=== PATIENT | female | born 1980 | race Caucasian/White ===

== ENCOUNTER 2022-08-28 09:33 | Outpatient (CLI) | payer OTHER, SELFPAY | END 2022-08-28 09:34 | disposition home or self-care (01) | LOC: NFLDREF 08-29 22:08 | PROVIDERS: PCP Family Medicine; Referring Provider Family Medicine; Visit Provider Family Medicine | DX: E78.5 Hyperlipidemia, unspecified (principal); E66.01 Morbid (severe) obesity due to excess calories | CPT/HCPCS: 80053; 80061 ==

== ENCOUNTER 2023-05-08 11:58 | Outpatient (CLI) | payer OTHER, SELFPAY ==
--- NOTE | 2023-05-08 12:15 | CRLHL7_ITS ---
For Patients: As a result of the Century Cures Act, medical imaging exams and procedure reports are released immediately into your electronic medical record. You may view this report before your referring provider. If you have questions, please contact your health care provider. INDICATION: Abnormal uterine bleeding COMPARISON: none TECHNIQUE: 2D pichardo scale and color Doppler images were acquired of the pelvis using a transabdominal and transvaginal approach. FINDINGS: Sonographic images demonstrate a normal size and smooth outer contour of the uterus. Uterus measures 8.8 cm in length by 5.0 cm in AP diameter by 4.9 cm in transverse dimension. section scar noted along with cervical nabothian cysts. No uterine fibroid. The endometrial lining appears heterogeneous and measures 13 mm in composite thickness. Intrauterine device is present within the endometrial canal. The right ovary measures 2.7 x 1.9 x 1.9 cm in size and the left ovary measures 2.7 x 1.7 x 1.7 cm. The ovaries demonstrate normal arterial and venous blood flow on color Doppler analysis. There are no suspicious fluid collections within the cul-de-sac. IMPRESSION: Normal position of the IUD within the endometrial canal. Heterogeneous endometrium measuring 13 millimeters. Dictated by Joe Cheung MD @ 05/08/2023 1:07:33 PM (Electronically Signed)
== END 2023-05-08 11:59 | disposition home or self-care (01) ==
LOC: US 11:59
PROVIDERS: PCP Family Medicine; Visit Provider Obstetrics & Gynecology
DX: N93.9 Abnormal uterine and vaginal bleeding, unspecified (principal); R93.89 Abnormal findings on diagnostic imaging of other specified body structures
CPT/HCPCS: 76830; 76856

== ENCOUNTER 2023-07-25 14:03 | Outpatient (CLI) | payer BC, SELFPAY ==
--- NOTE | 2023-07-25 14:00 | MM_ITS ---
Patient: RICARDO LYNN Facility:?[facility] Patient ID:?[id number] Site Patient ID:?[id number]. Site :?1980 Study:?XRay-Breast Bilateral 3D W/CAD-07/25/2023 3:30:49 PM Ordering Physician:Kamran Stevenson Final Report: BILATERAL DIGITAL SCREENING MAMMOGRAM WITH TOMOSYNTHESIS AND COMPUTER-AIDED DETECTION CLINICAL HISTORY: Routine screening exam. COMPARISON: None. TECHNIQUE: Digital mammogram in CC and MLO projections including computer-aided detection (CAD). Tomosynthesis utilized. BREAST COMPOSITION: The breasts are almost entirely fatty. FINDINGS: RIGHT Breast: Lobular density with calcification measuring 15 millimeters located in the lower inner quadrant 9 cm from the nipple. LEFT Breast: No suspicious findings. IMPRESSION: RIGHT breast asymmetry/mass. RECOMMENDATIONS: Additional mammographic views of the RIGHT breast including 3D spot compression CC/MLO. RIGHT breast ultrasound may also be required. BI-RADS Category 0: Incomplete: Need Additional Imaging Evaluation and/or Prior Mammograms for Comparison The [facility] will contact the patient for follow-up. A lay language report of this examination will be provided to the patient. Dictated by Joe Cheung MD @ 07/26/2023 10:14:58 AM j/Dictated by: Joe Cheung MD @ 07/26/2023 10:21:00 AM Signed by:?Joe Cheung MD @07/26/2023 10:23:18 AM (Electronic Signature)
== END 2023-07-25 14:04 | disposition home or self-care (01) ==
PROVIDERS: PCP Family Medicine; Visit Provider Family Medicine
DX: Z12.31 Encounter for screening mammogram for malignant neoplasm of breast (principal); N63.10 Unspecified lump in the right breast, unspecified quadrant
CPT/HCPCS: 77063; 77067

== ENCOUNTER 2023-08-16 09:46 | Outpatient (CLI) | payer BC, SELFPAY ==
--- NOTE | 2023-08-16 09:45 | MM_ITS ---
Patient: RICARDO LYNN Facility:?[facility] Patient ID:?[id number] Site Patient ID:?[id number]. Site :?1980 Study:?XRay-Breast Right 3D W/CAD-08/16/2023 10:24:01 AM Ordering Physician:Elva Final Report: DIGITAL DIAGNOSTIC RIGHT MAMMOGRAM USING TOMOSYNTHESIS AND COMPUTER-AIDED DETECTION RIGHT BREAST ULTRASOUND CLINICAL HISTORY: RIGHT breast mass/asymmetry. COMPARISON: 07/25/2023. TECHNIQUE: Digital RIGHT mammogram in two projections. Tomosynthesis and CAD utilized. Real-time ultrasound imaging of RIGHT breast with imaging documentation. BREAST COMPOSITION: There are areas of scattered fibroglandular density. FINDINGS: 3D spot compression CC/MLO RIGHT breast mammogram images submitted. Persistent nodular density is present with coarse calcifications. No architectural distortion. Targeted RIGHT breast ultrasound performed. At 1 o`clock 7 cm from the nipple, there is a lobular hypoechoic mass, taller than wide, measuring 14 x 17 x 13 millimeters. IMPRESSION: Suspicious 1.7 cm nodule RIGHT breast 1 o`clock 7 cm from the nipple. RECOMMENDATIONS: Ultrasound-guided core needle biopsy. Results and recommendations discussed with the patient. BI-RADS Category 4: Suspicious A lay language report of this examination will be provided to the patient. Dictated by Joe Cheung MD @ 08/16/2023 11:20:15 AM jj/Dictated by: Joe Cheung MD @ 08/16/2023 11:20:00 AM Signed by:?Joe Cheung MD @08/16/2023 12:15:11 PM (Electronic Signature)
--- NOTE | 2023-08-16 10:15 | US_ITS ---
Patient: RICARDO LYNN Facility:?[facility] Patient ID:?[id number] Site Patient ID:?[id number] Site :?1980 Study:?US-Breast Right DR YU TO READ-08/16/2023 10:47:00 AM Ordering Physician:?AZEB SEAMAN Final Report: PLEASE SEE DIGITAL DIAGNOSTIC RIGHT MAMMOGRAM PERFORMED SAME DAY CRL:chava larsen/Dictated by: Joe Yu MD @ 08/16/2023 11:20:00 AM Signed by:?Joe Yu MD @08/16/2023 12:15:12 PM (Electronic Signature)
== END 2023-08-16 09:47 | disposition home or self-care (01) ==
LOC: MAMMO 09:46
PROVIDERS: PCP Family Medicine; Visit Provider Family Medicine
DX: N63.10 Unspecified lump in the right breast, unspecified quadrant (principal); R92.8 Other abnormal and inconclusive findings on diagnostic imaging of breast
CPT/HCPCS: 76642; 77065; G0279

== ENCOUNTER 2023-08-27 09:11 | Outpatient (CLI) | payer BC, SELFPAY ==
--- OUTSIDE RECORDS SUMMARY | 2023-08-27 09:13 | XMS_ITS | Clinical Summary ---
Author Name Unknown Organization [facility] Address [place], [place] [address] Care Team Providers Care Peeled Potato Inspector Name Role Phone Pcp, No Primary Care Provider Unavailabl e Allergies No known active allergies Medications Medication Sig Dispensed Refills Start Date End Date Status betamethasone, augmented dipropianate 0.05% (DIPROLENE AF) 0.05 % creamIndications:Ecz abbey, dyshidrotic Apply topically to affected area(s) 2 times daily. Apply to hand until resolved, not > 2 weeks 50 g 05/29/2017 Active FLUoxetine (PROZAC) 40 mg capsuleIndications:A nxiety,Obsessive-com pulsive disorder, unspecified type Take 1 capsule by mouth every morning. 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 Generalized anxiety disorder 10/08/2009 Adjustment disorder with mixed anxiety and depre ssed mood 09/15/2009 Tobacco use disorder 09/15/2009 EDEMA, CORNEAL DUE TO CONTACT LENS 07/08/2003 DEPRESSION, NEUROTIC 08/05/1999 ANXIETY OBSESSIVE-COMPULSIVE DISORDERS INFERTILITY - FEMALE Immunizations Name Administration Dates Next Due Influenza, IIV4 04/10/2016 Social History Tobacco Use Types Packs/Day Years Used Date Smoking Tobacco: Every Day Cigarettes Smokeless Tobacco: Never Tobacco Cessation:Counseling Given: Yes Alcohol Use Standard Drinks/Week Comments No 0 (1 standard drink = 0.6 oz pur e alcohol) Alcoholic Drinks/day: 0 Sex and Gender Information Value Date Recorded Sex Assigned at Not on file Gender Identity Not on file Sexual Orientation Not on file Obstetrics History Last Filed Vital Signs Vital Sign Reading Time Taken Comments Blood Pressure 120/82 06/23/2017 12:20 PM CHILLING HOOD OPERATOR Pulse 92 06/23/2017 12:20 PM CHILLING HOOD OPERATOR Temperature 37.2 ??C (98.9 ??F) 06/23/2017 1 2:20 PM CHILLING HOOD OPERATOR Respiratory Rate 18 01/11/2013 4:00 AM CDT Oxygen Saturation 98% 06/23/2017 12: 20 PM CHILLING HOOD OPERATOR Inhaled Oxygen Concentration - - Weight 115.6 kg (254 lb 12.8 oz) 2017 12:20 PM CHILLING HOOD OPERATOR Height 165.7 cm (5' 5.25) 05/29/2017 1 0:05 AM CHILLING HOOD OPERATOR Body Mass Index 42.08 05/29/2017 10:05 AM CHILLING HOOD OPERATOR Plan of Treatment Health Maintenance Due Date Last Done Comments HIV for age 15-65 1993 Hepatitis C screening for age 18-79 1996 Tetanus booster 1998 Depression screening for age 12+ 11/24/2017 11/24/2016 BMI (ht and wt on same day) for age 18+ 05/29/2018 05/29/2017, 04/18/2017, 11/24/2016, Additional history exists COVID-19 vaccine series (2022- season) 2023 Colonoscopy through age 75 2023 Lipids for age 45-75 2023 Mammogram for age 45-75 2023 Pap test for age 21-65 12/03/2023 12/02/2020, 2020 Influenza for age 9-49 01/13/2024 04/10/2016 Tdap Completed 01/04/2013 (Comp leted outside of [facility]) Pneumococcal series for age 6-64 Aged Out No longer eligible based on patient's age to complete this topic Procedures Procedure Name Priority Date/Time Associated Diagnosis Comments DEDENTER THIN PREP PAP SCREEN IMAGED Routine 12/02/2020 10:00 AM CDT from Last 3 Months or Most Recently Relevant to Health Maintenance Results * (ABNORMAL) DEDENTER THIN PREP PAP SCREEN IMAGED (12/02/2020 10:00 AM CDT) Case Report Gynecologic Cytology Report ? Case: [id number] ? Authorizing Provider: ??Kamran Barajas MD ?Collected: ? 12/02/2020 1000 ? Ordering Location: ? [facility] ?Received: ?12/03/2020 0755 ? First Screen: ?Simona Valladares ? Pathologist: ? Mane Weiss Jr., ? MD ? Specimen: ?DEDENTER ThinPrep Vial Screening, Cervical/Vagina l ? 12/14/2020 10:39 AM CDT [facility] INTERPRETATION/ RESULT ATYPICAL SQUAMOUS CELLS OF UNDETERMINED SIGNIFICANCE (ASCUS)(A) (none) 12/14/2020 10:39 AM CDT [facility] IMEN ADEQUACY Satisfactory for evaluation Endocervical component present 12/14/2020 10:39 AM CDT [facility] HPV REQUEST HPV and PAP 12/14/2020 10:39 AM CDT [facility] Additional Information 12/14/2020 10:39 AM CDT [facility] Comment: Interpreted at [facility] - [address], [place] [address] Automated Review Successful 12/14/2020 10:39 AM T [facility] Comment:Specimen processed s uccessfully by automated admitting office escort device, ThinPrep Imaging System, [employer] ANCILLARY TESTING DEDENTER HPV Ordered, Please see separate report 12/14/2020 10:39 AM T [facility] Note The pap test is a screening technique, not a diagnostic procedure. It is used primarily to screen for squamous cancers and precursor lesions. Published studies have shown that it is subject to both false negative and false positive results. The pap test should not be used as the sole means to diagnose or exclude pre-malignant and malignant lesions. 12/14/2020 10:39 AM T [facility] Other (Cervical/Vagina l) 12/02/2020 10:00 AM CDT 12/03/2020 7:55 AM CDT Kamran Barajas MD PATHOLOGY/CYTOLOGY [facility] [address] [place] [address], [place] from Last 3 Months or Most Recently Relevant to Health Maintenance Advance Directives * Full Code (Latest Code Status on File) Date Activated Date Inactivated Comments 04/17/2008 7:25 AM 04/17/2008 2:57 PM Care Teams Peeled Potato Inspector Relationship Specialty Start Date End Date Pcp, No . PCP - General 01/10/13
--- NOTE | 2023-08-27 09:15 | US_ITS ---
Patient: RICARDO LYNN Facility:?[facility] Patient ID:?[id number] Site Patient ID:?[id number]. Site :?1980 Study:?US-Breast Right DR YU TO READ-08/27/2023 9:54:09 AM Ordering Physician:?AZEB SEAMAN Final Report: ULTRASOUND-GUIDED RIGHT BREAST BIOPSY AND POST-BIOPSY DIGITAL MAMMOGRAM FOR BIOPSY MARKER PLACEMENT CLINICAL HISTORY: Indeterminate nodule. COMPARISON STUDIES: 08/16/2023, 07/25/2023. TECHNIQUE: Real-time ultrasound with image documentation was used for targeting the breast lesion. Core biopsy specimens were obtained using an automated gun with a 18- gauge biopsy needle. Post-biopsy CC and ML digital mammograms were obtained to document position of the biopsy marker. CONSENT and TIME OUT: The procedure, risks, and alternatives were explained to the patient and a consent was signed. [place] Protocol was followed including pre-procedure verification that relevant information/documentation was available, reviewed and properly matched to the patient; consent accurate and complete; and equipment and supplies available. Time Out was conducted just prior to starting procedure to verify the four required elements: patient identity, correct side/site marked (if applicable), procedure, relevant images/results properly labeled and displayed (if applicable). PROCEDURE: The patient was positioned supine on the ultrasound table. The breast was prepped with ChloraPrep. 8 cc of 1 percent lidocaine used for local anesthesia. Core samples were obtained. A sterile metal biopsy clip was placed percutaneously to katiana the lesion position within the breast. The specimens were placed in 10% formalin and sent to the pathology department. Pressure was held on the biopsy site until all bleeding subsided. The skin incision was closed with Steri-Strips. An ice pack was positioned over the biopsy site. Post-biopsy instructions were reviewed with the patient, and a written copy was given to her. LATERALITY: RIGHT. LESION: Hypoechoic solid lesion measuring 1.4 x 1.7 x 1.3 cm at 1 o`clock 7 cm from the nipple. SUSPICION FOR MALIGNANCY: High. NUMBER OF SAMPLES: 6 BIOPSY CLIP SHAPE: Oval. PROXIMITY OF CLIP TO TARGET: Immediately adjacent to/within the lesion. IMPRESSION: Ultrasound-guided breast biopsy. When the pathology report is available, an addendum to this report will be made. 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 This is concordant. Because the patient has a history of chest radiation for lymphoma treatment, would consider high risk screening for this patient. Dictated by: Joe Yu MD @08/29/2023 10:02:09 AM / Alex Signed by:?Joe Yu MD @08/29/2023 11:18:31 AM (Electronic Signature)
--- NOTE | 2023-08-27 10:00 | MM_ITS ---
Patient: RICARDO LYNN Facility:?[facility] Patient ID:?[id number] Site Patient ID:?[id number]. Site :?1980 Study:?XRay-Breast Right 2D w/ CAD POST CLIP PLACEMENT-08/27/2023 9:54:32 AM Ordering Physician:Elva Final Report: PLEASE SEE RIGHT ULTRASOUND-GUIDED BIOPSY OF SAME DAY. CRL:pjt PT/Dictated by: Joe Cheung MD @ 08/27/2023 10:25:00 AM Signed by:?Joe Cheung MD @08/27/2023 10:36:37 AM (Electronic Signature)
== END 2023-08-27 09:12 | disposition home or self-care (01) ==
LOC: US 09:11
PROVIDERS: PCP Family Medicine; Visit Provider Family Medicine
DX: N63.10 Unspecified lump in the right breast, unspecified quadrant (principal); D24.1 Benign neoplasm of right breast; R92.8 Other abnormal and inconclusive findings on diagnostic imaging of breast
CPT/HCPCS: 19083; 77065; 88305; A4648; A4649

== ENCOUNTER 2024-01-04 11:20 | Outpatient (CLI) | payer BC, SELFPAY ==
--- OUTSIDE RECORDS SUMMARY | 2024-01-04 11:23 | XMS_ITS | Clinical Summary ---
Author Organization [facility] Address [place], [place] [address] Care Team Providers Care Retail Advisor Name Role Phone Pcp, No Primary Care [...] Comments Blood Pressure 120/82 06/23/2017 12:20 PM MOLDING MACHINE SETTER Pulse 92 06/23/2017 12:20 PM MOLDING MACHINE SETTER Temperature 37.2 ??C (98.9 ??F) 06/23/2017 1 2:20 PM MOLDING MACHINE SETTER Respiratory Rate 18 01/11/2013 4:00 AM CDT Oxygen Saturation 98% 06/23/2017 12: 20 PM MOLDING MACHINE SETTER Inhaled Oxygen Concentration - - Weight 115.6 kg (254 lb 12.8 oz) 2017 12:20 PM MOLDING MACHINE SETTER Height 165.7 cm (5' 5.25) 05/29/2017 1 0:05 AM MOLDING MACHINE SETTER Body Mass Index 42.08 05/29/2017 10:05 AM MOLDING MACHINE SETTER Plan of Treatment Health Maintenance Due Date [...] Procedure Name Priority Date/Time Associated Diagnosis Comments CREATIVE ART THERAPIST THIN PREP PAP SCREEN IMAGED Routine 12/02/2020 10:00 AM CDT from Last 3 Months or Most Recently Relevant to Health Maintenance Results * (ABNORMAL) CREATIVE ART THERAPIST THIN PREP PAP SCREEN IMAGED (12/02/2020 10:00 AM CDT) Case Report Gynecologic Cytology Report ? Case: [id number] ? Authorizing Provider: ??Kamran Barajas MD ?Collected: ? 12/02/2020 1000 ? Ordering Location: ? [facility] ?Received: ?12/03/2020 0755 ? First Screen: ?Simona Valladares ? Pathologist: ? Mane Weiss Jr., ? MD ? Specimen: ?CREATIVE ART THERAPIST ThinPrep Vial Screening, Cervical/Vagina l ? 12/14/2020 10:39 AM CDT [facility] INTERPRETATION/ RESULT ATYPICAL SQUAMOUS CELLS OF UNDETERMINED SIGNIFICANCE (ASCUS)(A) (none) 12/14/2020 10:39 AM CDT [facility] IMEN ADEQUACY Satisfactory for evaluation Endocervical component present 12/14/2020 10:39 AM CDT [facility] HPV REQUEST HPV and PAP 12/14/2020 10:39 AM CDT [facility] Additional Information 12/14/2020 10:39 AM CDT [facility] Comment: Interpreted at [facility] - [address], [place] [address] Automated Review Successful 12/14/2020 10:39 AM T [facility] Comment:Specimen processed s uccessfully by automated horse show judge device, ThinPrep Imaging System, [employer] ANCILLARY TESTING CREATIVE ART THERAPIST HPV Ordered, Please see separate report 12/14/2020 10:39 AM CDT [facility] Note The pap test is a screening technique, not a diagnostic procedure. It is used primarily to screen for squamous cancers and precursor lesions. Published studies have shown that it is subject to both false negative and false positive results. The pap test should not be used as the sole means to diagnose or exclude pre-malignant and malignant lesions. 12/14/2020 10:39 AM T [facility] Other (Cervical/Vagina l) 12/02/2020 10:00 AM CDT 12/03/2020 7:55 AM CDT Kamran Barajas MD PATHOLOGY/CYTOLOGY [facility] [address] [place] [address], [place] from Last 3 Months or Most Recently Relevant to Health Maintenance Advance Directives * Full Code (Latest Code Status on File) Date Activated Date Inactivated Comments 04/17/2008 7:25 AM 04/17/2008 2:57 PM Care Teams Retail Advisor Relationship Specialty Start Date End Date Pcp, No . PCP - General 01/10/13
== END 2024-01-04 11:21 | disposition home or self-care (01) ==
LOC: NFLDREF 11:21
PROVIDERS: PCP Family Medicine; Visit Provider Registered Nurse
DX: R51.9 Headache, unspecified (principal); G89.29 Other chronic pain
CPT/HCPCS: 84439; 84443

== ENCOUNTER 2024-06-13 09:13 | Outpatient (CLI) | payer BC, SELFPAY | END 2024-06-13 09:14 | disposition home or self-care (01) | PROVIDERS: PCP Family Medicine; Visit Provider Registered Nurse | DX: R53.83 Other fatigue (principal); E66.01 Morbid (severe) obesity due to excess calories; R06.01 Orthopnea | CPT/HCPCS: 80048; 83880; 84439; 84443 ==

== ENCOUNTER 2024-11-21 00:13 | Emergency (ER) | payer BC, SELFPAY ==
--- OUTSIDE RECORDS SUMMARY | 2024-11-21 00:15 | XMS_ITS | Data Portability ---
Author Organization [facility], [employer] Address [address] [place] [address] Assessment Encounter Date Assessment Date Assessment LastModified by Organization Details LastModified Time 10/02/2024 10/02/2024 Informed the patient of her diagnosis as detailed down below. At this time she was informed that we will first attempt a tri layered heel lift in addition to PT for initial relief. In regards to her heel lift she will leave [address] for 2 weeks, followed by removal of 1 layer, leaving [address] followed by removal of the last layer. Additionally I will send the patient to [facility] for treatment. The patient was informed about surgical correction, however she was detailed that this would only be pursed after failure of conservative cares in addition to after smoking cessation which she was understanding. The patient will be seen back in about 3 weeks for a recheck. [email or web address] Not available 10/02/2024 15:41:04 Plan of Treatment Reminders Order Date Submit Date Provider Last Modified By Organization Details Last Modified Time Details Appointments None record ed. Lab None record ed. Referral None record ed. Procedures None record ed. Surgeries None record ed. Imaging XR, foot, 3 or more view 025 10/03/[address] [facility], [address] [place] [address], [id number], 17:19:01 Medication Orders None record ed. Patient TargetsNo targets recorded. Patient InstructionsNo instructions recorded. Reason for Referral None Reported. Results Created Date Observation Date Name Description Value Unit Range Abnormal Flag Note LastModifiedBy Organization Detail LastModifiedTime 10/03/19 XR, foot, 3 or more view No observ ation record ed. [email or web address] [facility] [address] [place] [address] [address], [place], [address], 10/02/2024 15:38:41 Result Notes None recorded. Medical Equipment None Reported. Allergies No known drug allergies Medications Name Sig Start Date Stop Date Status Note LastModified by Organization Details LastModified Time cetirizine 10 mg tablet TAKE 1 TABLET BY MOUTH EVERY DAY active Not Available Not Available No t Available hydrocortison e 1 % topical ointment APPLY TOPICALLY TO THE AFFECTED AREA 1 TIME A DAY FOR 2 WEEKS active Not Available Not Available No t Available triamcinolone acetonide 0.1 % topical cream APPLY TOPICALLY TO THE AFFECTED AREA EVERY DAY NEEDED FOR RASH active Not Available Not Available No t Available fluoxetine 20 mg capsule TAKE 2 CAPSULES BY MOUTH DAILY active Not Available Not Available No t Available Vitals Date Recorded Body height Body mass index (BMI) Body weight Provider Name and Address Organization Details Last Updated DateTime 10/02/2024 167.64 cm 38.7 kg/m2 902248.17 g Elizabeth [facility] 10/02/2024 14:52:35 Social History None recorded. Functional Status None recorded. Mental Status None recorded. Family History Nothing Reported. Medical History No medical history recorded. Gynecological HistoryNo gynecological history recorded. 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 Health Concerns Section Related Observation LastModified by Organization Detai ls LastModified Time None Recorded Concern Status LastModified by Organization Details LastModified Time None Recorded Advance Directives Directive None Recorded Payers Insurance Date Sequence Insurance Name Policy Number Policy Borrero Covered Member ID Borrero Member ID Guarantor Name 10/02/2024 1 [place] [id number] Ashley [id number] Ashley Alonzo Notes Date Note Type Note Provider Name and Address Organization Details Recorded Time 10/02/2024 text/html Patient is a 44 year old female new patient who presents to clinic today for evaluation of right sided foot pain. Mentions that this has been ongoing for about 1 year in duration and presents today after gradually worsening symptoms. Mentions that she has not tried any conservative cares at this time. Chung Garces DPM [address] [place], [address], [facility] - [facility] 10/02/2024 15:41:17 OBGyn Episode No OBEpisode recorded.
[2024-11-21 00:19] VITALS: BP 134/55; PULSE 68; RESP 16; TEMP 36.1; O2SAT 98
[2024-11-21 00:32] LABS: Appearance Urine Cloudy (Clear)
--- NOTE | 2024-11-21 00:44 | CRLHL7_ITS ---
For Patients: As a result of the Century Cures Act, medical imaging exams and procedure reports are released immediately into your electronic medical record. You may view this report before your referring provider. If you have questions, please contact your health care provider. Indication: Abdominal pain Technique: CT through the abdomen and pelvis following 127 mL Isovue 370 IV contrast Comparison: None Findings: Lower chest: No acute abnormality appreciated. Hepatobiliary: No significant parenchymal abnormality is appreciated. Spleen: Unremarkable. Pancreas: No acute abnormality appreciated. Adrenal glands: No acute abnormality appreciated. Kidneys: Mild right hydronephrosis with a delayed right nephrogram. Nonobstructing bilateral stones. Bowel: No obstruction. No focal perienteric or pericolonic stranding is appreciated. The appendix is visualized and appears unremarkable. Vascular: No acute abnormality appreciated. Lymph nodes: No gross lymphadenopathy. Peritoneum: No free air. No free fluid. : IUD present. Obstructing 3 millimeter distal right ureteral stone. Soft tissues: No acute abnormality appreciated. Bones: No acute fracture. No lytic or blastic lesion. Mild spondylosis and spondylolisthesis. Impression: 1. Obstructing 3 millimeter distal right ureteral stone with mild hydronephrosis and a delayed right nephrogram. 2. Additional bilateral nonobstructing stones present. Please note that all CT scans at this facility use dose modulation, iterative reconstruction, and/or weight-based dosing when appropriate to reduce radiation dose to as low as reasonably achievable. Dictated by Jesus Kerns MD @ 11/21/2024 1:41:10 AM (Electronically Signed)
--- NOTE | 2024-11-21 00:45 | ED_ITS ---
HPI - Abdominal Pain General Chief Complaint: Abdominal Pain Stated Complaint: low right abd. pain Time Seen by Provider: 11/21/24 01:49 History of Present Illness HPI narrative: Patient is a 44-year-old woman with history of kidney stones who presents with right flank pain 1 hour duration. She has had nausea but no vomiting. Pain is severe 8/10 with no radiation pain is sharp. She has had similar symptoms with kidney stones in the past. She states she is not and has a Mirena IUD in place. No other symptoms. Related Data Home Medications ?Medication ?Instructions ?Recorded ?Confirmed levonorgestrel (Mirena) 1 device intrauterine ONCE 1 06/21/22 07/02/24 Previous Rx's ?Medication ?Instructions ?Recorded fluoxetine 20 mg capsule 40 mg (2 x 20 mg) PO QDAY 90 days 01/30/24 #180 caps triamcinolone acetonide 0.1 % 1 applic topical QDAY RI N rash #30 06/13/24 topical cream grams cetirizine 10 mg tablet (Zyrtec) 10 mg PO QDAY #30 tab s 07/02/24 hydrocortisone 1 % topical ointment 1 applic topical O NCE #28.35 grams 07/02/24 sumatriptan succinate 50 mg tablet See Rx Instructions PO .COMPLEX 10/27/24 #20 tabs tamsulosin 0.4 mg capsule (Flomax) 0.4 mg PO DAILY #7 caps 11/21/24 Allergies Allergy/AdvReac Type Severity Reaction Status Date / Time No Known Allergies Allergy Unknown Verified 07/02/24 13:47 Review of Systems Status of ROS Reports: 10 or more systems reviewed and unremarkable except as noted in History and below [facility] Medical History Hx of echocardiogram ?Z92.89 - Personal history of other medical treatment (ICD-10) Congestive heart failure ?I50.9 - Heart failure, unspecified (ICD-10) History of induced hypertension ?Z87.59 - Personal history of other complications of , childbirth and the puerperium (ICD-10) Abnormal uterine bleeding (AUB) ?N93.9 - Abnormal uterine and vaginal bleeding, unspecified (ICD-10) Otitis media ?H66.90 - Otitis media, unspecified, unspecified ear (ICD-10) History of spontaneous ?Z87.59 - Personal history of other complications of , childbirth and the puerperium (ICD-10) History of renal calculi ?Z87.442 - Personal history of urinary calculi (ICD-10) History of Hodgkin's lymphoma ?Z85.71 - Personal history of Hodgkin lymphoma (ICD-10) Bleeding ?R58 - Hemorrhage, not elsewhere classified (ICD-10) Surgical History History of section ?Z98.891 - History of uterine scar from previous surgery (ICD-10) Family History Father Heart valve replaced Rheumatic heart disease Mother Endometriosis Sister Endometriosis Social History Smoking Status: Current every day smoker Non-prescribed substance use: denies use Exam Narrative: Exam Narrative: EXAM GENERAL: Patient appears mildly uncomfortable. EYES: No scleral icterus. LYMPH: No supraclavicular or cervical lymphadenopathy. SKIN: Visible skin seen during exam normal or with benign process only. EXT: No dependent lower extremity pedal edema. HEART: Regular rate and rhythm with no murmurs, rubs, or gallops. LUNGS: Clear to auscultation bilaterally with no crackles or wheezes. ABD: Soft, non tender, non distended. PSYCH: Good eye contact, speech is not pressured. Const: Vital Signs, click to edit/add: Vital Signs - 24 hr 11/21/24 00:19 Temperature 97 F L Pulse Rate [Pulse Oximeter] 68 Respiratory Rate 16 Blood Pressure [Ri ght Upper Arm] 134/55 L Pulse Oximetry 98 Oxygen Delivery Me thod Room Air Course Course ED Course: Patient seen and examined. CBC comprehensive metabolic panel lipase UA CT abdomen pelvis ordered. 1 L normal saline 4 mg of Zofran 30 mg of IV Toradol provided. Vital Signs Vital signs: Initial Vital Signs Temperature 97 F L 11/21/24 00:19 Temperature Source Temporal Artery Scan 11/21/24 00:19 Pulse Rate 68 11/21/24 00:19 Respiratory Rate 16 11/21/24 00:19 Blood Pressure 134/55 L 11/21/24 00:19 Blood Pressure Mean 81 11/21/24 00:19 Blood Pressure Position Semi-Fowlers 11/21/24 00:19 Pulse Oximetry 98 11/21/24 00:19 Oxygen Delivery Method Room Air 11/21/24 00:19 Vital Signs Temperature 97 F L 11/21/24 00:19 Pulse Rate 68 11/21/24 00:19 Respiratory Rate 16 11/21/24 00:19 Blood Pressure 134/55 L 11/21/24 00:19 Pulse Oximetry 98 11/21/24 00:19 Oxygen Delivery Method Room Air 11/21/24 00:19 Temperature 97 F L 11/21/24 00:19 Pulse Rate 68 11/21/24 00:19 Respiratory Rate 16 11/21/24 00:19 Blood Pressure 134/55 L 11/21/24 00:19 Pulse Oximetry 98 11/21/24 00:19 Oxygen Delivery Method Room Air 11/21/24 00:19 Medications Administered Medications: Discontinued Medications Generic Name Dose Route Start Last Admin Trade Name Christina PRN Reason Stop Dose Admin Sodium Chloride 1,000 mls @ 1,000 mls/hr 11/21/24 00:43 11/21/24 00:52 0.9 % Sodium Chloride 1000 Ml IV 11/21/24 01:42 1,000 mls/hr .Q1H ROMAN Administration Ketorolac Tromethamine 30 mg 11/21/24 00:43 11/21/24 00:51 Ketorolac 30 Mg/Ml Inj IVP 11/21/24 00:44 30 mg ONCE ONE Administration Ondansetron HCl 4 mg 11/21/24 00:43 11/21/24 00:51 Ondansetron 2 Mg/Ml Inj IVP 11/21/24 00:44 4 mg ONCE ONE Administration MDM - Abdominal Pain MDM Narrative Medical decision making narrative: Patient presents with right flank pain as a 3 mm kidney stone. We did give her L of normal saline 30 mg of Toradol 4 mg of Zofran in 0.5 Dilaudid with modest improvement in her symptoms. Patient has had numerous stones the past I do not believe straining her urine is relevant at this time. I did start her on Flomax for the next 7 days which I sent to her pharmacy and I did discharge her home w ith oxycodone 5 mg every 6 hours as needed she will drink plenty of fluids get plenty of rest follow-up with her primary physician as needed. Lab Data Labs: Lab Results 11/21/24 11/21/24 Range/Units 00:20 00:26 WBC 10.67 (4.50-11.00) K/uL RBC 5.16 (4.00-5.20) m/uL Hgb 13.8 (12.0-16.0) gm/dL Hct 42.9 (33.0-51.0) % MCV 83 (80-100) fL MCH 27 (26-34) pg MCHC 32 (32-36) gm/dL RDW Coeff of Michelle 15.0 (11.5-15.5) % Plt Count 290 (140-440) K/uL Neut % (Auto) 49.3 (42.0-72.0) % Lymph % (Auto) 39.8 (20-44) % [place] % (Auto) 8.0 (0.0-11.0) % Eos % (Auto) 2.4 (0.0-7.0) % Baso % (Auto) 0.4 (0.0-3.0) % Neut # (Auto) 5.26 (1.7-7.0) K/uL Lymph # (Auto) 4.25 H (0.90-2.90) K/uL [place] # (Auto) 0.90 (0.00-0.90) K/UL Eos # (Auto) 0.26 (0.00-0.50) K/uL Baso # (Auto) 0.04 (0.00-0.30) K/uL Abs Immat Gran (auto) 0.01 (0.00-0.30) K/uL Imm/Tot Granulo (auto) 0.1 % Sodium 138 (135-149) mmol/L Potassium 4.4 (3.6-5.1) mmol/L Chloride 104 (96-114) mmol/L Carbon Dioxide 27 (20-32) mmol/L Anion Gap 7 (7-15) mEq/L BUN 24 (5-24) mg/dL Creatinine 1.1 (0.5-1.5) mg/dL Estimated GFR 63 ml/min Glucose 128 H (60-115) mg/dL Calcium 8.7 (8.4-10.6) mg/dL Total Bilirubin 0.4 (0.1-1.5) mg/dL AST 35 (12-35) U/L ALT 25 (4-35) U/L Alkaline Phosphatase 88 (40-150) U/L Total Protein 7.4 (6.0-8.3) g/dL Albumin 4.2 (3.3-5.0) g/dL Lipase 128 (23-300) U/L Urine Color Yellow (Yellow) Urine Appearance Cloudy A (Clear) Urine pH 5.5 (5.0-8.5) Ur Specific [place] 1.025 (1.000-1.030) Urine Protein Negative (Negative) Urine Glucose (UA) Negative (Negative) Urine Ketones Negative (Negative) Urine Blood 3+ A (Negative) Urine Nitrite Negative (Negative) Urine Bilirubin Negative (Negative) Urine Urobilinogen 0.2 (0.2-1.0) Ur Leukocyte Esterase Negative (Negative) Urine RBC 25-50 A (0-2) Urine WBC 0-2 (0-5) Ur Squamous Epith Cells Few (None-Few) Urine Bacteria Moderate A (None) Discharge Plan Discharge Clinical Impression: Kidney calculi Patient Disposition: Home, Self-Care Condition: Stable Instructions: Kidney Stones (ED) Additional Instructions: Flomax as directed Oxycodone as directed Follow-up with your doctor as needed Plenty of rest Plenty fluids Tylenol Motrin Activity Level: No Restrictions Discharge Diet: Regular Prescriptions: New tamsulosin [Flomax] 0.4 mg capsule 0.4 mg PO DAILY Qty: 7 3RF No Action triamcinolone acetonide 0.1 % cream 1 applic topical QDAY PRN (Reason: rash) Qty: 30 1RF hydrocortisone 1 % ointment 1 applic topical ONCE Qty: 28.35 0RF Rx Instructions: Apply once daily to affected area for two weeks cetirizine [Zyrtec] 10 mg tablet 10 mg PO QDAY Qty: 30 0RF Mirena 21 mcg/24 hours (8 yrs) 52 mg intrauterine device 1 device intrauterine ONCE Rx Instructions: as a single dose Placed on 04/20/23 fluoxetine 20 mg capsule 40 mg PO QDAY 90 Days Qty: 180 3RF sumatriptan succinate 50 mg tablet See Rx Instructions PO .COMPLEX Qty: 20 1RF Rx Instructions: take 1 tab at onset of headache; if no relief may repeat 1 tab after at least 2 hrs; max = 4 tabs/24 hr PO Follow Up/Referrals: Kamran Barajas MD [Primary Care Provider, Family Practice] Stand Alone Forms: [employer] Info Instructions
[2024-11-21] MEDS: ONDANSETRON 2 MG/ML inj 4 MG IVP (00:51)
[2024-11-21 00:54] LABS: Albumin* 4.2 g/dL (3.3-5.0); Chloride* 104 mmol/L (96-114); Hematocrit 42.9 % (33.0-51.0); Hemoglobin* 13.8 gm/dL (12.0-16.0); Immature Granulocytes Abs Auto 0.01 K/uL (0.00-0.30); Immature Granulocytes Pct Auto 0.1 %; Lymphocytes Absolute Auto 4.25 K/uL (0.90-2.90); Mean Corpuscular HGB Conc 32 gm/dL (32-36); Mean Corpuscular Hemoglobin 27 pg (26-34); Mean Corpuscular Volume 83 fL (80-100); RDW Coefficient of Variation % 15.0 % (11.5-15.5); Red Blood Count 5.16 m/uL (4.00-5.20); White Blood Count* 10.67 K/uL (4.50-11.00)
[2024-11-21 00:55] LABS: Potassium* 4.4 mmol/L (3.6-5.1); Slide Review Reflex No; Sodium* 138 mmol/L (135-149)
[2024-11-21 00:57] LABS: Alanine Aminotransferase* 25 U/L (4-35); Anion Gap 7 mEq/L (7-15); Aspartate Amino Transferase* 35 U/L (12-35); Blood Urea Nitrogen* 24 mg/dL (5-24); Carbon Dioxide* 27 mmol/L (20-32); Creatinine* 1.1 mg/dL (0.5-1.5); Estimated Glomerular Filt Rate 63 ml/min
[2024-11-21 00:58] LABS: Alkaline Phosphatase* 88 U/L (40-150); Bilirubin Total* 0.4 mg/dL (0.1-1.5); Calcium* 8.7 mg/dL (8.4-10.6); Glucose* 128 mg/dL (60-115); Total Protein* 7.4 g/dL (6.0-8.3)
== END 2024-11-21 02:09 | disposition home or self-care (01) ==
PROVIDERS: Emergency Provider Internal Medicine; PCP Family Medicine
DX: N20.0 Calculus of kidney (principal)
CPT/HCPCS: 36415; 74177; 80053; 81001; 83690; 85025; 87086; 96374; 96375; 99283; 99284; J1171; J1885; J2405; J7030; Q9967

== ENCOUNTER 2025-03-19 14:04 | Outpatient (CLI) | payer BC, SELFPAY | END 2025-03-19 14:05 | disposition home or self-care (01) | LOC: NFLDREF 03-23 06:28 | PROVIDERS: PCP Family Medicine; Referring Provider Family Medicine; Visit Provider Family Medicine | DX: R35.0 Frequency of micturition (principal) | CPT/HCPCS: 87086 ==

== ENCOUNTER 2025-05-12 09:48 | Outpatient (CLI) | payer BC, SELFPAY | END 2025-05-12 09:49 | disposition home or self-care (01) | PROVIDERS: PCP Family Medicine; Visit Provider Family Medicine | DX: R53.83 Other fatigue (principal); E66.01 Morbid (severe) obesity due to excess calories; Z68.41 Body mass index [BMI] 40.0-44.9, adult; Z13.6 Encounter for screening for cardiovascular disorders; R73.01 Impaired fasting glucose; G62.9 Polyneuropathy, unspecified | CPT/HCPCS: 80053; 80061; 82607; 84439; 84443 ==